=== PATIENT | female | born 1960 | race Two or more races ===

== ENCOUNTER → 2017-10-06 | Emergency (ER) | payer OTHER ==
[~2017-10-06] VITALS: Ht 160 cm; Wt 113.4 kg
[~2017-10-06] MED LIST: BICARSIM FORTE125 MG PO; CATAFLAM50 MG PO; CHEST CONG100 MG/51; CYMBALTA60 MG; DICLOFENAC SODI50 MG PO; GILTUSS LIQUID237 M1 PO; KETO10TA2 PO; ORPH100T PO; PROVENTIL3 ML/2.5 M IH; VALISONE15 GM TP; VENTOLIN HFA18 GM IH; VISTARIL25 MG PO
== END | disposition home or self-care (01) ==
LOC: ER 18:55
DX: R19.7 Diarrhea, unspecified (principal); R10.84 Generalized abdominal pain

== ENCOUNTER → 2018-01-31 | Emergency (ER) | payer OTHER ==
[~2018-01-31] VITALS: Ht 160 cm; Wt 108.0 kg
[~2018-01-31] MED LIST changes: +AMBIEN10 MG PO; +EDLUAR10 MG SL; +GARAMYCIN OPHT3.5 GM OP; +REDNESS RELIEF15 ML OP
== END | disposition home or self-care (01) ==
LOC: ER 04:21
DX: H10.13 Acute atopic conjunctivitis, bilateral (principal)

== ENCOUNTER → 2018-02-03 | Emergency (ER) | payer OTHER ==
[~2018-02-03] VITALS: Ht 160 cm; Wt 106.6 kg
== END | disposition home or self-care (01) ==
LOC: ER 05:08
DX: G47.09 Other insomnia (principal)

== ENCOUNTER 2018-02-10 05:15 | Emergency (ER) | payer OTHER ==
[~2018-02-10] VITALS: Ht 160 cm; Wt 108.0 kg
[2018-02-10] MEDS ORDERED: VISTARIL50 MG PO (07:15)
[2018-02-10] MEDS ORDERED: GENTAK5 ML OPHT ×2 (07:21→07:22)
[2018-02-25] MEDS ORDERED: ZYNCOF 20-400120 ML PO (03:44)
[2018-02-25] MEDS ORDERED: OSEL75CA PO (03:44)
[2018-02-25] MEDS ORDERED: XOPENEX0.63 MG/3 IH (03:44)
== END 2018-02-10 07:27 | disposition home or self-care (01) ==
LOC: ER 05:15
DX: G47.09 Other insomnia (principal); R53.81 Other malaise

== ENCOUNTER → 2018-02-24 | Emergency (ER) | payer OTHER ==
[~2018-02-24] VITALS: Ht 160 cm; Wt 106.6 kg
[~2018-02-24] MED LIST changes: +GENTAK5 ML OPHT; +OSEL75CA PO; +VISTARIL50 MG PO; +XOPENEX0.63 MG/3 IH; +ZYNCOF 20-400120 ML PO
== END | disposition home or self-care (01) ==
LOC: ER 20:59
DX: J11.1 Influenza due to unidentified influenza virus with other respiratory manifestations (principal); B34.9 Viral infection, unspecified

== ENCOUNTER → 2018-03-07 | Emergency (ER) | payer OTHER ==
[~2018-03-07] VITALS: Ht 160 cm; Wt 106.6 kg
== END | disposition left against medical advice (07) ==
LOC: ER 00:08
DX: Z53.20 Procedure and treatment not carried out because of patient's decision for unspecified reasons (principal)

== ENCOUNTER 2018-03-14 20:22 | Emergency (ER) | payer OTHER ==
[~2018-03-14] VITALS: Ht 160 cm; Wt 106.6 kg
[2018-03-14] MEDS ORDERED: CYMBALTA60 MG (20:57)
[2018-03-14] MEDS ORDERED: BACTRIM DS TAB1 EACH PO (23:09)
== END 2018-03-14 23:59 | disposition home or self-care (01) ==
LOC: ER 20:22
DX: B34.9 Viral infection, unspecified (principal); N39.0 Urinary tract infection, site not specified

== ENCOUNTER 2018-04-14 21:01 | Emergency (ER) | payer OTHER ==
[~2018-04-14] VITALS: Ht 160 cm; Wt 106.6 kg
[~2018-04-14 21:01] MED LIST changes: +BACTRIM DS TAB1 EACH PO
== END 2018-04-15 13:18 ==
LOC: ER 21:01
DX: I87.2 Venous insufficiency (chronic) (peripheral) (principal); M62.838 Other muscle spasm; N39.0 Urinary tract infection, site not specified

== ENCOUNTER → 2018-04-30 | Emergency (ER) | payer OTHER ==
[~2018-04-30] VITALS: Ht 160 cm; Wt 109.8 kg
== END | disposition left against medical advice (07) ==
LOC: ER 15:52
DX: Z53.20 Procedure and treatment not carried out because of patient's decision for unspecified reasons (principal)

== ENCOUNTER → 2018-09-30 | Emergency (ER) | payer OTHER ==
[~2018-09-30] VITALS: Ht 160 cm; Wt 108.0 kg
== END | disposition home or self-care (01) ==
LOC: ER 21:36
DX: H57.89 Other specified disorders of eye and adnexa (principal)

== ENCOUNTER 2018-10-01 09:10 | Emergency (ER) | payer OTHER ==
[~2018-10-01] VITALS: Ht 160 cm; Wt 108.0 kg
== END 2018-10-01 13:20 | disposition home or self-care (01) ==
LOC: ER 09:10
DX: E05.80 Other thyrotoxicosis without thyrotoxic crisis or storm (principal)

== ENCOUNTER 2018-10-01 12:31 | Outpatient (CLI) | payer OTHER | END 2018-10-01 12:42 | disposition home or self-care (01) | LOC: LAB 12:31 | DX: E05.90 Thyrotoxicosis, unspecified without thyrotoxic crisis or storm (principal) ==

== ENCOUNTER 2018-10-21 09:26 | Outpatient (CLI) | payer OTHER | END 2018-10-21 13:37 | disposition home or self-care (01) | LOC: NUCLEAR 09:26 | DX: E05.00 Thyrotoxicosis with diffuse goiter without thyrotoxic crisis or storm (principal) | CPT/HCPCS: 78012; A9531 ==

== ENCOUNTER 2018-10-21 10:52 | Outpatient (CLI) | payer OTHER | END 2018-10-21 17:00 | disposition home or self-care (01) | LOC: SONOGRAMA 10:52 → MAMO-SONO 10:52 → SONOGRAMA 17:00 | DX: E03.8 Other specified hypothyroidism (principal); E04.8 Other specified nontoxic goiter ==

== ENCOUNTER 2018-10-22 14:18 | Outpatient (CLI) | payer OTHER | END 2018-10-22 14:50 | disposition home or self-care (01) | LOC: NUCLEAR 14:18 | DX: E05.00 Thyrotoxicosis with diffuse goiter without thyrotoxic crisis or storm (principal) | CPT/HCPCS: 78013; A9512 ==

== ENCOUNTER 2018-11-07 20:46 | Emergency (ER) | payer OTHER ==
[~2018-11-07] VITALS: Ht 157.5 cm; Wt 90.7 kg
== END 2018-11-07 23:38 | disposition home or self-care (01) ==
LOC: ER 20:46
DX: F41.9 Anxiety disorder, unspecified (principal); T38.2X5A Adverse effect of antithyroid drugs, initial encounter; N39.0 Urinary tract infection, site not specified

== ENCOUNTER 2018-12-14 04:58 | Emergency (ER) | payer OTHER ==
[~2018-12-14] VITALS: Ht 157.5 cm; Wt 106.6 kg
== END 2018-12-14 11:01 | disposition home or self-care (01) ==
LOC: ER 04:58
DX: R00.2 Palpitations (principal); E05.90 Thyrotoxicosis, unspecified without thyrotoxic crisis or storm

== ENCOUNTER 2018-12-28 01:45 | Emergency (ER) | payer OTHER ==
[~2018-12-28] VITALS: Ht 160 cm; Wt 108.0 kg
[2018-12-28] MEDS ORDERED: TAPAZOLE5 MG (01:58)
[2018-12-28] MEDS ORDERED: TAPAZOLE5 M1 PO (05:36)
[2018-12-28] MEDS ORDERED: VISTARIL25 MG PO (05:36)
[2018-12-28] MEDS ORDERED: PROPRANOLOL HCL10 MG PO ×2 (05:36→05:37)
== END 2018-12-28 05:43 | disposition home or self-care (01) ==
LOC: ER 01:45
DX: E05.80 Other thyrotoxicosis without thyrotoxic crisis or storm (principal); F06.4 Anxiety disorder due to known physiological condition

== ENCOUNTER 2019-01-09 15:57 | Emergency (ER) | payer OTHER ==
[~2019-01-09] VITALS: Ht 160 cm; Wt 90.7 kg
[~2019-01-09 15:57] MED LIST changes: +PROPRANOLOL HCL10 MG PO; +TAPAZOLE5 M1 PO; +TAPAZOLE5 MG
[2019-01-09] MEDS ORDERED: CYMBALTA20 MG (16:35)
[2019-01-09] MEDS ORDERED: ATIVAN1 MG PO (17:57)
== END 2019-01-09 18:53 | disposition home or self-care (01) ==
LOC: ER 15:57
DX: G47.09 Other insomnia (principal)

== ENCOUNTER → 2019-02-06 | Emergency (ER) | payer OTHER ==
[~2019-02-06] VITALS: Ht 160 cm; Wt 113.4 kg
[~2019-02-06] MED LIST changes: +ATIVAN1 MG PO; +CYMBALTA20 MG; +MOBIC15 MG PO
== END | disposition home or self-care (01) ==
LOC: ER 03:34
DX: M94.0 Chondrocostal junction syndrome [Tietze] (principal)

== ENCOUNTER 2019-02-22 09:43 | Emergency (ER) | payer OTHER ==
[~2019-02-22] VITALS: Ht 160 cm; Wt 112.5 kg
== END 2019-02-22 12:15 | disposition home or self-care (01) ==
LOC: EMR PED 09:43 → ER 09:45
DX: R53.1 Weakness (principal)

== ENCOUNTER 2019-02-26 22:47 | Emergency (ER) | payer OTHER ==
[~2019-02-26] VITALS: Ht 160 cm; Wt 108.0 kg
[2019-02-27] MEDS ORDERED: NORFLEX100MG PO (01:38)
[2019-02-27] MEDS ORDERED: KETO10TA2 PO (01:38)
== END 2019-02-27 01:45 | disposition home or self-care (01) ==
LOC: ER 22:47
DX: S30.0XXA Contusion of lower back and pelvis, initial encounter (principal); W17.89XA Other fall from one level to another, initial encounter; Y93.89 Activity, other specified; Y92.230 Patient room in hospital as the place of occurrence of the external cause; Y99.8 Other external cause status

== ENCOUNTER 2019-03-27 14:08 | Emergency (ER) | payer OTHER ==
[~2019-03-27] VITALS: Ht 160 cm; Wt 108.0 kg
[~2019-03-27 14:08] MED LIST changes: +NORFLEX100MG PO
== END 2019-03-27 16:04 | disposition home or self-care (01) ==
LOC: ER 14:08
DX: M79.18 Myalgia, other site (principal); M19.91 Primary osteoarthritis, unspecified site

== ENCOUNTER 2019-10-21 21:21 | Emergency (ER) | payer OTHER ==
[~2019-10-21] VITALS: Ht 162.6 cm; Wt 97.5 kg
[2019-10-22] MEDS ORDERED: VISTARIL50 MG PO (02:48)
[2019-10-22] MEDS ORDERED: TOBRAMYCIN-DEXAM5 ML OP (02:48)
== END 2019-10-22 04:15 | disposition home or self-care (01) ==
LOC: ER 21:21
DX: H57.89 Other specified disorders of eye and adnexa (principal); G47.09 Other insomnia; F41.8 Other specified anxiety disorders

== ENCOUNTER → 2019-11-04 | Emergency (ER) | payer OTHER ==
[~2019-11-04] VITALS: Ht 160 cm; Wt 106.6 kg
[~2019-11-04] MED LIST changes: +LOTRISONE CREAM45 GM TOP; +TOBRAMYCIN-DEXAM5 ML OP
== END | disposition home or self-care (01) ==
LOC: ER 03:51
DX: R05 Cough (principal)

== ENCOUNTER 2019-11-06 05:07 | Emergency (ER) | payer OTHER ==
[~2019-11-06] VITALS: Ht 160 cm; Wt 103.4 kg
[~2019-11-06 05:07] MED LIST changes: -LOTRISONE CREAM45 GM TOP
[2019-11-06] MEDS ORDERED: CYMBALTA60 MG (05:28)
[2019-11-06] MEDS ORDERED: TAPAZOLE5 M1 PO (06:21)
[2019-11-06] MEDS ORDERED: VISTARIL50 MG PO (06:21)
[2019-11-06] MEDS ORDERED: LOTRISONE CREAM45 GM TOP (06:21)
[2019-11-06] MEDS ORDERED: TOBRAMYCIN-DEXAM5 ML OP (06:21)
== END 2019-11-06 06:39 | disposition home or self-care (01) ==
LOC: ER 05:07
DX: H10.33 Unspecified acute conjunctivitis, bilateral (principal); L30.8 Other specified dermatitis

== ENCOUNTER → 2019-11-23 | Emergency (ER) | payer OTHER ==
[~2019-11-23] VITALS: Ht 160 cm; Wt 106.6 kg
[~2019-11-23] MED LIST changes: +CLARITIN-D 241 EACH PO; +FLONASE16 GM TOP; +LOTRISONE CREAM45 GM TOP; +ZYRTEC10 M3
== END | disposition home or self-care (01) ==
LOC: ER 09:01
DX: H10.89 Other conjunctivitis (principal)

== ENCOUNTER 2019-11-24 17:13 | Emergency (ER) | payer OTHER ==
[~2019-11-24] VITALS: Ht 160 cm; Wt 106.6 kg
[~2019-11-24 17:13] MED LIST changes: -CLARITIN-D 241 EACH PO; -FLONASE16 GM TOP; -ZYRTEC10 M3
[2019-11-24] MEDS ORDERED: ZYRTEC10 M3 (17:44)
[2019-11-24] MEDS ORDERED: CLARITIN-D 241 EACH PO (21:23)
[2019-11-24] MEDS ORDERED: FLONASE16 GM TOP (21:23)
== END 2019-11-24 22:33 | disposition home or self-care (01) ==
LOC: ER 17:13
DX: J32.8 Other chronic sinusitis (principal)

== ENCOUNTER 2019-11-30 07:22 | Emergency (ER) | payer OTHER ==
[~2019-11-30] VITALS: Ht 160 cm; Wt 106.6 kg
[~2019-11-30 07:22] MED LIST changes: +CLARITIN-D 241 EACH PO; +FLONASE16 GM TOP; +ZYRTEC10 M3
[2019-11-30] MEDS ORDERED: VISTARIL50 MG PO (08:43)
== END 2019-11-30 09:19 ==
LOC: ER 07:22
DX: G47.09 Other insomnia (principal)

== ENCOUNTER 2020-09-30 11:58 | Outpatient (CLI) | payer OTHER | END 2020-09-30 12:05 | disposition home or self-care (01) | LOC: MAMO-SONO 11:58 | PROVIDERS: ATTEND Obstetrics & Gynecology | DX: N60.02 Solitary cyst of left breast (principal); Z12.31 Encounter for screening mammogram for malignant neoplasm of breast; N64.4 Mastodynia ==

== ENCOUNTER 2020-10-05 15:09 | Outpatient (CLI) | payer OTHER | END 2020-10-05 15:30 | disposition home or self-care (01) | LOC: RAD 15:09 | PROVIDERS: ATTEND Physical Medicine & Rehabilitation | DX: M25.511 Pain in right shoulder (principal); M54.2 Cervicalgia ==

== ENCOUNTER 2021-04-09 09:35 | Emergency (ER) | payer OTHER ==
[~2021-04-09] VITALS: Ht 162.6 cm; Wt 99.8 kg
== END 2021-04-09 14:29 | disposition home or self-care (01) ==
LOC: ER 09:35
DX: N39.0 Urinary tract infection, site not specified (principal)

== ENCOUNTER → 2021-06-01 08:00 | Outpatient (CLI) | payer OTHER | END | disposition home or self-care (01) | LOC: PPH VACUNA 08:00 | PROVIDERS: ATTEND Emergency Medicine Pediatric Emergency Medicine | DX: Z23 Encounter for immunization (principal) ==

== ENCOUNTER 2021-07-28 07:53 | Emergency (ER) | payer OTHER ==
[~2021-07-28] VITALS: Ht 160 cm; Wt 122.0 kg
[~2021-07-28 07:53] MED LIST changes: -SYNTHROID50 MCG
[2021-07-28] MEDS ORDERED: SYNTHROID50 MCG (08:07)
== END 2021-07-28 14:59 | disposition home or self-care (01) ==
LOC: ER 07:53
DX: F41.9 Anxiety disorder, unspecified (principal)

== ENCOUNTER → 2021-07-28 | Outpatient (CLI) | payer OTHER ==
[~2021-07-28] MED LIST changes: +SYNTHROID50 MCG
== END | disposition home or self-care (01) ==
LOC: SONOGRAMA 13:56
PROVIDERS: ATTEND Emergency Medicine
DX: D34 Benign neoplasm of thyroid gland (principal)

== ENCOUNTER 2022-01-10 16:33 | Outpatient (CLI) | payer OTHER ==
[~2022-01-10 16:33] MED LIST changes: +SYNTHROID50 MCG
== END 2022-01-10 16:48 | disposition home or self-care (01) ==
LOC: RAD 16:33
PROVIDERS: ATTEND General Practice
DX: M79.672 Pain in left foot (principal); M79.601 Pain in right arm

== ENCOUNTER 2022-01-10 17:49 | Emergency (ER) | payer OTHER | END 2022-01-10 19:42 | disposition left against medical advice (07) | LOC: ER 17:49 | DX: Z53.21 Procedure and treatment not carried out due to patient leaving prior to being seen by health care provider (principal) ==

== ENCOUNTER 2022-01-16 08:00 | Outpatient (CLI) | payer OTHER | END 2022-01-16 08:30 | disposition home or self-care (01) | LOC: PPH VACUNA 08:00 | PROVIDERS: ATTEND Emergency Medicine Pediatric Emergency Medicine | DX: Z23 Encounter for immunization (principal) ==

== ENCOUNTER 2022-01-25 06:22 | Outpatient (CLI) | payer OTHER | END 2022-01-25 13:03 | disposition home or self-care (01) | LOC: MRI 06:22 | DX: M79.672 Pain in left foot (principal); M25.111 Fistula, right shoulder; M19.071 Primary osteoarthritis, right ankle and foot | CPT/HCPCS: 73221; 73718 ==

== ENCOUNTER 2022-01-29 08:22 | Emergency (ER) | payer OTHER ==
[~2022-01-29] VITALS: Ht 160 cm; Wt 88.5 kg
[2022-01-29] MEDS ORDERED: ARMOUR THYROID30 M1 PO (08:36)
== END 2022-01-29 13:00 | disposition home or self-care (01) ==
LOC: ER 08:22
DX: M25.572 Pain in left ankle and joints of left foot (principal); Z91.041 Radiographic dye allergy status; Z91.013 Allergy to seafood

== ENCOUNTER 2022-02-08 03:12 | Emergency (ER) | payer OTHER ==
[~2022-02-08] VITALS: Ht 160 cm; Wt 88.5 kg
[~2022-02-08 03:12] MED LIST changes: +ARMOUR THYROID30 M1 PO
[2022-02-08] MEDS ORDERED: ORPHENADRINE C100 MG PO (09:27)
== END 2022-02-08 10:15 | disposition home or self-care (01) ==
LOC: ER 03:12
DX: M54.50 Low back pain, unspecified (principal); S39.92XA Unspecified injury of lower back, initial encounter; Z91.041 Radiographic dye allergy status; Z91.013 Allergy to seafood; E06.9 Thyroiditis, unspecified

== ENCOUNTER 2022-02-28 03:48 | Emergency (ER) | payer OTHER ==
[~2022-02-28] VITALS: Ht 160 cm; Wt 97.5 kg
[~2022-02-28 03:48] MED LIST changes: +ORPHENADRINE C100 MG PO
[2022-02-28] MEDS ORDERED: ARMOUR THYROID30 M1 PO (03:57)
[2022-02-28] MEDS ORDERED: NORFLEX100MG PO (07:20)
[2022-02-28] MEDS ORDERED: KETO10TA2 PO (07:20)
== END 2022-02-28 07:35 | disposition home or self-care (01) ==
LOC: ER 03:48
DX: R51.9 Headache, unspecified (principal); E06.3 Autoimmune thyroiditis; E66.01 Morbid (severe) obesity due to excess calories; Z91.041 Radiographic dye allergy status; Z91.013 Allergy to seafood; M62.830 Muscle spasm of back

== ENCOUNTER 2022-03-14 14:03 | Outpatient (CLI) | payer OTHER | END 2022-03-14 14:43 | disposition home or self-care (01) | LOC: RAD 14:03 | PROVIDERS: ATTEND Orthopaedic Surgery Adult Reconstructive Orthopaedic Surgery | DX: M25.511 Pain in right shoulder (principal); M75.121 Complete rotator cuff tear or rupture of right shoulder, not specified as traumatic; M75.122 Complete rotator cuff tear or rupture of left shoulder, not specified as traumatic ==

== ENCOUNTER 2022-03-17 04:45 | Emergency (ER) | payer OTHER ==
[~2022-03-17] VITALS: Ht 160 cm; Wt 98.9 kg
== END 2022-03-17 15:42 ==
LOC: ER 04:45
DX: B34.9 Viral infection, unspecified (principal); Z88.8 Allergy status to other drugs, medicaments and biological substances; Z91.013 Allergy to seafood; Z20.822 Contact with and (suspected) exposure to COVID-19

== ENCOUNTER → 2022-03-29 | Emergency (ER) | payer OTHER | END | disposition left against medical advice (07) | LOC: ER 14:12 | DX: Z53.21 Procedure and treatment not carried out due to patient leaving prior to being seen by health care provider (principal) ==

== ENCOUNTER → 2022-04-17 | Emergency (ER) | payer OTHER ==
[~2022-04-17] VITALS: Ht 160 cm; Wt 108.0 kg
== END | disposition home or self-care (01) ==
LOC: ER 06:06
DX: M62.830 Muscle spasm of back (principal); R60.0 Localized edema; Z88.8 Allergy status to other drugs, medicaments and biological substances; Z91.013 Allergy to seafood

== ENCOUNTER → 2022-04-19 | Outpatient (CLI) | payer OTHER | END | disposition home or self-care (01) | LOC: MAMO-SONO | PROVIDERS: ATTEND General Practice | DX: Z12.31 Encounter for screening mammogram for malignant neoplasm of breast (principal) ==

== ENCOUNTER 2022-08-27 13:10 | Emergency (ER) | payer OTHER ==
[~2022-08-27] VITALS: Ht 160 cm; Wt 90.7 kg
== END 2022-08-27 18:41 | disposition home or self-care (01) ==
LOC: ER 13:10
DX: M54.50 Low back pain, unspecified (principal); N39.0 Urinary tract infection, site not specified; Z88.8 Allergy status to other drugs, medicaments and biological substances; Z91.013 Allergy to seafood; Z20.822 Contact with and (suspected) exposure to COVID-19; E03.9 Hypothyroidism, unspecified

== ENCOUNTER 2022-09-03 16:41 | Emergency (ER) | payer OTHER ==
[~2022-09-03] VITALS: Ht 160 cm; Wt 108.9 kg
[2022-09-03] MEDS ORDERED: LEVOFLOXACIN750 MG PO (20:39)
== END 2022-09-03 20:57 | disposition home or self-care (01) ==
LOC: ER 16:41
DX: R19.7 Diarrhea, unspecified (principal); J45.909 Unspecified asthma, uncomplicated; E03.9 Hypothyroidism, unspecified; Z88.0 Allergy status to penicillin; Z91.013 Allergy to seafood; Z91.041 Radiographic dye allergy status; A49.3 Mycoplasma infection, unspecified site

== ENCOUNTER 2022-09-08 14:52 | Emergency (ER) | payer OTHER ==
[~2022-09-08] VITALS: Ht 160 cm; Wt 111.1 kg
[~2022-09-08 14:52] MED LIST changes: +LEVOFLOXACIN750 MG PO
[2022-09-08] MEDS ORDERED: ARMOUR THYROID30 M1 (16:02)
== END 2022-09-08 22:35 | disposition home or self-care (01) ==
LOC: ER 14:52
DX: N39.0 Urinary tract infection, site not specified (principal)

== ENCOUNTER 2022-11-05 18:13 | Emergency (ER) | payer OTHER ==
[~2022-11-05] VITALS: Ht 162.6 cm; Wt 111.1 kg
== END 2022-11-05 19:42 | disposition home or self-care (01) ==
LOC: ER 18:13
DX: M54.50 Low back pain, unspecified (principal); R51.9 Headache, unspecified; Z88.0 Allergy status to penicillin; Z91.013 Allergy to seafood; Z91.041 Radiographic dye allergy status

== ENCOUNTER → 2022-11-05 | Emergency (ER) | payer OTHER ==
[~2022-11-05] MED LIST changes: +ARMOUR THYROID30 M1
== END | disposition left against medical advice (07) ==
LOC: ER 16:06
DX: Z53.21 Procedure and treatment not carried out due to patient leaving prior to being seen by health care provider (principal)

== ENCOUNTER 2022-11-15 01:16 | Emergency (ER) | payer OTHER ==
[~2022-11-15] VITALS: Ht 162.6 cm; Wt 110.7 kg
[2022-11-15] MEDS ORDERED: ORPHENADRINE C100 MG PO (05:45)
[2022-11-15] MEDS ORDERED: KETO10TA2 PO (05:45)
== END 2022-11-15 06:13 ==
LOC: ER 01:16
DX: S80.11XA Contusion of right lower leg, initial encounter (principal); S90.32XA Contusion of left foot, initial encounter; S40.011A Contusion of right shoulder, initial encounter; W18.30XA Fall on same level, unspecified, initial encounter; Y93.89 Activity, other specified; Y92.512 Supermarket, store or market as the place of occurrence of the external cause; Y99.9 Unspecified external cause status; Z88.8 Allergy status to other drugs, medicaments and biological substances; Z88.0 Allergy status to penicillin; Z91.013 Allergy to seafood

== ENCOUNTER 2022-11-19 00:36 | Emergency (ER) | payer OTHER ==
[~2022-11-19] VITALS: Ht 160 cm; Wt 111.1 kg
[2022-11-19] MEDS ORDERED: VISTARIL50 MG PO (01:58)
== END 2022-11-19 02:08 | disposition home or self-care (01) ==
LOC: ER 00:36
DX: G47.00 Insomnia, unspecified (principal)

== ENCOUNTER → 2022-12-05 | Emergency (ER) | payer OTHER ==
[~2022-12-05] VITALS: Ht 162.6 cm; Wt 113.4 kg
== END | disposition left against medical advice (07) ==
LOC: ER 22:54
DX: Z53.21 Procedure and treatment not carried out due to patient leaving prior to being seen by health care provider (principal)

== ENCOUNTER 2022-12-24 16:47 | Emergency (ER) | payer OTHER ==
[~2022-12-24] VITALS: Ht 160 cm; Wt 106.6 kg
== END 2022-12-24 21:46 | disposition home or self-care (01) ==
LOC: ER 16:47
DX: J06.9 Acute upper respiratory infection, unspecified (principal); U07.1 COVID-19; R05.8 Other specified cough; Z88.0 Allergy status to penicillin; Z91.013 Allergy to seafood; Z91.041 Radiographic dye allergy status

== ENCOUNTER 2022-12-29 04:10 | Emergency (ER) | payer OTHER ==
[~2022-12-29] VITALS: Ht 167.6 cm; Wt 127.0 kg
[2022-12-29] MEDS ORDERED: KETO10TA2 PO (05:44)
[2022-12-29] MEDS ORDERED: FUSION PLUS CA1 EACH PO (05:44)
== END 2022-12-29 05:50 ==
LOC: ER 04:10
DX: S80.01XA Contusion of right knee, initial encounter (principal); S70.01XA Contusion of right hip, initial encounter; S00.33XA Contusion of nose, initial encounter; W18.30XA Fall on same level, unspecified, initial encounter; Y93.89 Activity, other specified; Y92.018 Other place in single-family (private) house as the place of occurrence of the external cause; Y99.9 Unspecified external cause status; Z88.8 Allergy status to other drugs, medicaments and biological substances; Z88.0 Allergy status to penicillin; Z91.013 Allergy to seafood; E03.9 Hypothyroidism, unspecified

== ENCOUNTER 2023-01-03 00:08 | Emergency (ER) | payer OTHER ==
[~2023-01-03] VITALS: Ht 160 cm; Wt 110.7 kg
[~2023-01-03 00:08] MED LIST changes: +FUSION PLUS CA1 EACH PO
== END 2023-01-03 04:59 ==
LOC: ER 00:08
DX: M54.89 Other dorsalgia (principal); Z88.8 Allergy status to other drugs, medicaments and biological substances; Z88.0 Allergy status to penicillin; Z91.013 Allergy to seafood

== ENCOUNTER 2023-01-06 06:32 | Emergency (ER) | payer OTHER ==
[~2023-01-06] VITALS: Ht 160 cm; Wt 108.0 kg
== END 2023-01-06 09:03 | disposition home or self-care (01) ==
LOC: ER 06:32
DX: M54.59 Other low back pain (principal); Z88.0 Allergy status to penicillin; Z91.041 Radiographic dye allergy status; Z91.013 Allergy to seafood; Z86.39 Personal history of other endocrine, nutritional and metabolic disease

== ENCOUNTER → 2023-01-09 | Outpatient (CLI) | payer OTHER | END | disposition home or self-care (01) | LOC: MRI 07:38 | DX: M54.59 Other low back pain (principal); M51.16 Intervertebral disc disorders with radiculopathy, lumbar region | CPT/HCPCS: 72148 ==

== ENCOUNTER 2023-01-13 23:11 | Emergency (ER) | payer OTHER ==
[~2023-01-13] VITALS: Ht 160 cm; Wt 108.0 kg
[2023-01-15] MEDS ORDERED: KETO10TA2 PO (06:24)
== END 2023-01-13 23:55 | disposition home or self-care (01) ==
LOC: ER 23:11
DX: M62.830 Muscle spasm of back (principal); Z88.8 Allergy status to other drugs, medicaments and biological substances; Z88.0 Allergy status to penicillin; Z91.013 Allergy to seafood

== ENCOUNTER 2023-01-15 04:01 | Emergency (ER) | payer OTHER ==
[~2023-01-15] VITALS: Ht 157.5 cm; Wt 104.3 kg
[2023-01-15] MEDS ORDERED: KETO10TA2 PO ×2 (06:24)
== END 2023-01-15 06:30 ==
LOC: ER 04:01
DX: S89.81XA Other specified injuries of right lower leg, initial encounter (principal); S39.82XA Other specified injuries of lower back, initial encounter; W18.39XA Other fall on same level, initial encounter; Y93.89 Activity, other specified; Y92.524 Gas station as the place of occurrence of the external cause; Y99.8 Other external cause status; Z88.8 Allergy status to other drugs, medicaments and biological substances; Z91.041 Radiographic dye allergy status; Z91.013 Allergy to seafood

== ENCOUNTER 2023-01-18 08:52 | Emergency (ER) | payer OTHER ==
[~2023-01-18] VITALS: Ht 165.1 cm; Wt 113.4 kg
[~2023-01-18 08:52] MED LIST changes: -CYMBALTA60 MG PO
[2023-01-18] MEDS ORDERED: ARMOUR THYROID30 M1 PO (09:00)
[2023-01-18] MEDS ORDERED: CYMBALTA60 MG PO (09:01)
== END 2023-01-18 09:30 | disposition home or self-care (01) ==
LOC: ER 08:52
DX: M25.552 Pain in left hip (principal); Z88.0 Allergy status to penicillin; Z88.2 Allergy status to sulfonamides; Z91.013 Allergy to seafood

== ENCOUNTER → 2023-01-18 | Emergency (ER) | payer OTHER ==
[~2023-01-18] MED LIST changes: +CYMBALTA60 MG PO
== END | disposition home or self-care (01) ==
LOC: ER 05:45
DX: M25.552 Pain in left hip (principal); I10 Essential (primary) hypertension; Z88.0 Allergy status to penicillin; Z91.041 Radiographic dye allergy status; Z91.013 Allergy to seafood

== ENCOUNTER 2023-01-20 03:04 | Emergency (ER) | payer OTHER ==
[~2023-01-20] VITALS: Ht 160 cm; Wt 106.6 kg
[~2023-01-20 03:04] MED LIST changes: +CYMBALTA60 MG PO
== END 2023-01-20 04:12 | disposition home or self-care (01) ==
LOC: ER 03:04
DX: J06.9 Acute upper respiratory infection, unspecified (principal); Z88.8 Allergy status to other drugs, medicaments and biological substances; Z88.0 Allergy status to penicillin; Z91.013 Allergy to seafood

== ENCOUNTER → 2023-01-21 | Emergency (ER) | payer OTHER ==
[~2023-01-21] VITALS: Ht 160 cm; Wt 102.1 kg
== END | disposition left against medical advice (07) ==
LOC: ER 10:01
DX: Z53.21 Procedure and treatment not carried out due to patient leaving prior to being seen by health care provider (principal)

== ENCOUNTER → 2023-01-21 | Emergency (ER) | payer OTHER ==
[~2023-01-21] VITALS: Ht 160 cm; Wt 102.1 kg
== END | disposition left against medical advice (07) ==
LOC: ER 13:44
DX: Z53.21 Procedure and treatment not carried out due to patient leaving prior to being seen by health care provider (principal)

== ENCOUNTER 2023-02-06 04:58 | Emergency (ER) | payer OTHER ==
[~2023-02-06] VITALS: Ht 160 cm; Wt 107.0 kg
== END 2023-02-06 05:43 | disposition home or self-care (01) ==
LOC: ER 04:58
DX: M62.830 Muscle spasm of back (principal); Z88.0 Allergy status to penicillin; Z91.041 Radiographic dye allergy status; Z91.013 Allergy to seafood

== ENCOUNTER → 2023-02-11 | Emergency (ER) | payer OTHER ==
[~2023-02-11] VITALS: Ht 160 cm; Wt 108.0 kg
== END | disposition home or self-care (01) ==
LOC: ER 21:31
DX: M54.32 Sciatica, left side (principal); Z88.8 Allergy status to other drugs, medicaments and biological substances; Z88.0 Allergy status to penicillin; Z91.013 Allergy to seafood

== ENCOUNTER 2023-02-15 03:18 | Emergency (ER) | payer OTHER ==
[~2023-02-15] VITALS: Ht 160 cm; Wt 108.0 kg
[2023-02-15] MEDS ORDERED: DOLOGESIC 500-1 EACH PO (05:15)
== END 2023-02-15 05:29 ==
LOC: ER 03:18
DX: G44.209 Tension-type headache, unspecified, not intractable (principal); E03.9 Hypothyroidism, unspecified; Z88.8 Allergy status to other drugs, medicaments and biological substances; Z88.0 Allergy status to penicillin; Z91.013 Allergy to seafood

== ENCOUNTER 2023-02-17 09:28 | Emergency (ER) | payer OTHER ==
[~2023-02-17] VITALS: Ht 160 cm; Wt 108.0 kg
[~2023-02-17 09:28] MED LIST changes: +DOLOGESIC 500-1 EACH PO
== END 2023-02-17 11:53 | disposition home or self-care (01) ==
LOC: ER 09:28
DX: S40.011A Contusion of right shoulder, initial encounter (principal); S70.11XA Contusion of right thigh, initial encounter; S30.0XXA Contusion of lower back and pelvis, initial encounter; W19.XXXA Unspecified fall, initial encounter; Y93.9 Activity, unspecified; Y92.89 Other specified places as the place of occurrence of the external cause; Y99.9 Unspecified external cause status; Z88.8 Allergy status to other drugs, medicaments and biological substances; Z91.010 Allergy to peanuts; Z91.013 Allergy to seafood

== ENCOUNTER 2023-02-24 21:47 | Emergency (ER) | payer OTHER ==
[~2023-02-24] VITALS: Ht 160 cm; Wt 103.4 kg
== END 2023-02-24 23:22 | disposition home or self-care (01) ==
LOC: ER 21:47
DX: M62.830 Muscle spasm of back (principal)

== ENCOUNTER 2023-02-27 16:45 | Emergency (ER) | payer OTHER ==
[~2023-02-27] VITALS: Ht 160 cm; Wt 106.6 kg
== END 2023-02-27 22:36 | disposition home or self-care (01) ==
LOC: ER 16:45
DX: M54.50 Low back pain, unspecified (principal); M25.552 Pain in left hip; Z88.0 Allergy status to penicillin; Z91.013 Allergy to seafood; Z91.041 Radiographic dye allergy status

== ENCOUNTER 2023-03-03 04:17 | Emergency (ER) | payer OTHER ==
[~2023-03-03] VITALS: Ht 160 cm; Wt 106.6 kg
== END 2023-03-03 12:04 | disposition left against medical advice (07) ==
LOC: ER 04:17
DX: B34.9 Viral infection, unspecified (principal); E03.9 Hypothyroidism, unspecified; Z88.8 Allergy status to other drugs, medicaments and biological substances; Z88.0 Allergy status to penicillin; Z91.013 Allergy to seafood; Z20.822 Contact with and (suspected) exposure to COVID-19

== ENCOUNTER 2023-03-27 03:37 | Emergency (ER) | payer OTHER ==
[~2023-03-27] VITALS: Ht 165.1 cm; Wt 81.6 kg
== END 2023-03-27 09:50 | disposition home or self-care (01) ==
LOC: ER 03:37
DX: J06.9 Acute upper respiratory infection, unspecified (principal); Z20.822 Contact with and (suspected) exposure to COVID-19

== ENCOUNTER 2023-03-30 07:26 | Outpatient (CLI) | payer OTHER | END 2023-03-30 07:34 | disposition home or self-care (01) | LOC: SONOGRAMA 07:26 | DX: R10.13 Epigastric pain (principal) ==

== ENCOUNTER → 2023-04-03 | Emergency (ER) | payer OTHER ==
[~2023-04-03] VITALS: Ht 160 cm; Wt 103.4 kg
== END | disposition left against medical advice (07) ==
LOC: ER 16:38
DX: Z53.21 Procedure and treatment not carried out due to patient leaving prior to being seen by health care provider (principal)

== ENCOUNTER 2023-07-30 14:40 | Emergency (ER) | payer OTHER ==
[~2023-07-30] VITALS: Ht 160 cm; Wt 108.9 kg
[2023-07-30] MEDS ORDERED: ARMOUR THYROID30 M1 (15:30)
[2023-07-30 16:47] LABS: HEMATOCRIT 38.3 % (36.0-45.00); HEMOGLOBIN 12.6 g/dL (12.0-15.00); MEAN CELL VOLUME 85.6 fL (80.00-100.00); MEAN CORPUSCULAR HEMOGLOBIN 28.2 pg (27.00-32.0); PLATELET COUNT 247 K/uL (150-450); RED BLOOD COUNT 4.48 M/uL (4.00-6.00); RED CELL DISTRIBUTION WIDTH 16.2 % (11.5-14.5)
[2023-07-30 17:24] LABS: PH,URINE 5.5 (5.0-8.0); URINE APPEARANCE Turbid; URINE BILIRRUBIN Negative (NEGATIVE); URINE BLOOD Trace; URINE COLOR Yellow; URINE GLUCOSE Negative (NEGATIVE); URINE LEUKOCYTE Large; URINE NITRATE Positive; URINE PROTEIN Negative (NEGATIVE); URINE UROBILINOGEN 0.2 E.U./dl
[2023-07-30 17:28] LABS: URINE RBC 4.8 uL (0.0-20.8); URINE WBC 1180.2 uL (0.0-23.2)
[2023-07-30 17:33] LABS: ALBUMIN 3.3 gm/dL (3.4-5.0); BILIRUBIN TOTAL 0.31 mg/dL (0.3-1.2); CALCIUM 8.9 mg/dL (8.5-10.1); CREATININE SERUM 0.9 mg/dL (0.55-1.02); GFR 63.65; GLOBULINA 3.9 G/DL (2.4-3.5); POTASSIUM 3.75 mEq/L (3.5-5.1); TOTAL PROTEIN 7.2 gm/dL (6.4-8.2); TSH 1.31 uIU/mL (0.358-3.74)
[2023-07-30 17:35] LABS: URINE BACTERIA > 9821.5 uL (0.0-1933); URINE EPITHELIAL CELLS > 201.7 uL (0.0-38.8); URINE SPERM A
== END 2023-07-30 17:59 | disposition home or self-care (01) ==
LOC: ER 14:40
PROVIDERS: General Practice
DX: N39.0 Urinary tract infection, site not specified (principal); G47.00 Insomnia, unspecified; Z88.8 Allergy status to other drugs, medicaments and biological substances; Z88.0 Allergy status to penicillin; Z91.013 Allergy to seafood

== ENCOUNTER → 2024-01-04 | Emergency (ER) | payer OTHER ==
[~2024-01-04] VITALS: Ht 160 cm; Wt 115.7 kg
[~2024-01-04] MED LIST changes: +0.9 % SODIUM CHLORIDE 1,000 ML IV SCH; +FAMOTIDINE/PF 20 MG in 0.9 % SODIUM CHLORIDE 8 ML IV PUSH STA
[2024-01-04 19:20] LABS: HEMATOCRIT 41.5 % (36.0-45.00); HEMOGLOBIN 13.9 g/dL (12.0-15.00); MEAN CELL VOLUME 86.9 fL (80.00-100.00); MEAN CORPUSCULAR HEMOGLOBIN 29.1 pg (27.00-32.0); MEAN CORPUSCULAR HGB CONC 33.5 g/dl (32.0-36.0); PLATELET COUNT 240 K/uL (150-450); RED BLOOD COUNT 4.78 M/uL (4.00-6.00); RED CELL DISTRIBUTION WIDTH 13.9 % (11.5-14.5)
[2024-01-04 19:44] LABS: ALBUMIN 3.6 gm/dL (3.4-5.0); BILIRUBIN TOTAL 0.41 mg/dL (0.3-1.2); CALCIUM 9.3 mg/dL (8.5-10.1); CREATININE SERUM 0.86 mg/dL (0.55-1.02); GFR 67.08; GLOBULINA 4.8 G/DL (2.4-3.5); POTASSIUM 4.27 mEq/L (3.5-5.1); TOTAL PROTEIN 8.4 gm/dL (6.4-8.2)
== END | disposition home or self-care (01) ==
LOC: ER 16:02
PROVIDERS: General Practice
DX: K59.01 Slow transit constipation (principal); R10.9 Unspecified abdominal pain; E03.8 Other specified hypothyroidism; Z88.0 Allergy status to penicillin; Z91.013 Allergy to seafood; Z91.041 Radiographic dye allergy status

== ENCOUNTER 2024-04-10 10:48 | Emergency (ER) | payer OTHER ==
[~2024-04-10] VITALS: Ht 160 cm; Wt 115.7 kg
[~2024-04-10 10:48] MED LIST changes: -0.9 % SODIUM CHLORIDE 1,000 ML IV SCH; -FAMOTIDINE/PF 20 MG in 0.9 % SODIUM CHLORIDE 8 ML IV PUSH STA
[2024-04-10] MEDS ORDERED: ACETAMINOPHEN 500 MG GEL..CAP PO STA (11:29)
[2024-04-10] MEDS ORDERED: KETOROLAC TROMETHAMINE 15 MG VIAL IM STA (11:29)
[2024-04-10] MEDS ORDERED: DIPHENHYDRAMINE HCL 50 MG/ML VIAL 1ML IM STA (11:30)
[2024-04-10] MEDS ORDERED: DIPHENHYDRAMINE HCL 50 MG/ML VIAL 1ML ONE (11:43)
[2024-04-10] MEDS ORDERED: KETOROLAC TROMETHAMINE 30 MG VIAL ONE (11:43)
[2024-04-10] MEDS ORDERED: ACETAMINOPHEN 500 MG GEL..CAP PO ONE (11:44)
[2024-04-10 12:59] LABS: HEMATOCRIT 41.3 % (36.0-45.00); HEMOGLOBIN 13.7 g/dL (12.0-15.00); MEAN CELL VOLUME 87.8 fL (80.00-100.00); MEAN CORPUSCULAR HEMOGLOBIN 29.1 pg (27.00-32.0); MEAN CORPUSCULAR HGB CONC 33.1 g/dl (32.0-36.0); PLATELET COUNT 221 K/uL (150-450); RED CELL DISTRIBUTION WIDTH 13.8 % (11.5-14.5)
[2024-04-10 13:04] LABS: URINE APPEARANCE Clear; URINE BILIRRUBIN Negative (NEGATIVE); URINE BLOOD Negative; URINE COLOR Yellow; URINE GLUCOSE Negative (NEGATIVE); URINE LEUKOCYTE Small; URINE NITRATE Negative; URINE PROTEIN Negative (NEGATIVE); URINE UROBILINOGEN 0.2 E.U./dl
[2024-04-10 13:05] LABS: URINE BACTERIA 936.1 uL (0.0-1933); URINE WBC 81.9 uL (0.0-23.2)
[2024-04-10 13:07] LABS: URINE RBC 1.5 uL (0.0-20.8)
[2024-04-10 13:33] LABS: ALBUMIN 3.7 gm/dL (3.4-5.0); BILIRUBIN TOTAL 0.44 mg/dL (0.3-1.2); CALCIUM 9.1 mg/dL (8.5-10.1); CREATININE SERUM 0.62 mg/dL (0.55-1.02); GFR 97.86; POTASSIUM 4.39 mEq/L (3.5-5.1); TOTAL PROTEIN 7.7 gm/dL (6.4-8.2)
[2024-04-10 13:35] LABS: TSH 1.64 uIU/mL (0.358-3.74)
[2024-04-10] MEDS ORDERED: ACETAMINOPHEN500 M1 PO (14:06)
[2024-04-10] MEDS ORDERED: BACTRIM DS TAB1 EACH PO (14:06)
[2024-04-10] MEDS ORDERED: DICLOFENAC POTA50 MG PO (14:06)
== END 2024-04-10 14:53 | disposition home or self-care (01) ==
LOC: ER 10:48
PROVIDERS: General Practice
DX: N39.0 Urinary tract infection, site not specified (principal); E03.9 Hypothyroidism, unspecified; R42 Dizziness and giddiness; Z88.8 Allergy status to other drugs, medicaments and biological substances; Z88.0 Allergy status to penicillin; Z91.013 Allergy to seafood; Z20.822 Contact with and (suspected) exposure to COVID-19

== ENCOUNTER 2024-05-01 04:45 | Emergency (ER) | payer OTHER ==
[~2024-05-01] VITALS: Ht 160 cm; Wt 111.1 kg
[~2024-05-01 04:45] MED LIST changes: +ACETAMINOPHEN500 M1 PO; +DICLOFENAC POTA50 MG PO
[2024-05-01 06:57] LABS: HEMOGLOBIN 13.1 g/dL (12.0-15.00); MEAN CORPUSCULAR HEMOGLOBIN 29.6 pg (27.00-32.0); MEAN CORPUSCULAR HGB CONC 33.6 g/dl (32.0-36.0); PLATELET COUNT 236 K/uL (150-450); RED BLOOD COUNT 4.43 M/uL (4.00-6.00); RED CELL DISTRIBUTION WIDTH 14.1 % (11.5-14.5)
[2024-05-01 07:26] LABS: ALBUMIN 3.6 gm/dL (3.4-5.0); BILIRUBIN TOTAL 0.55 mg/dL (0.3-1.2); CALCIUM 8.7 mg/dL (8.5-10.1); CREATININE SERUM 0.85 mg/dL (0.55-1.02); GFR 67.77; GLOBULINA 3.8 G/DL (2.4-3.5); POTASSIUM 4.15 mEq/L (3.5-5.1); TOTAL PROTEIN 7.4 gm/dL (6.4-8.2); TSH 1.32 uIU/mL (0.358-3.74)
== END 2024-05-01 09:01 | disposition home or self-care (01) ==
LOC: ER 04:45
PROVIDERS: General Practice
DX: R42 Dizziness and giddiness (principal); R53.81 Other malaise; Z88.8 Allergy status to other drugs, medicaments and biological substances; Z88.0 Allergy status to penicillin; Z91.013 Allergy to seafood; E03.9 Hypothyroidism, unspecified

== ENCOUNTER 2024-05-01 22:52 | Emergency (ER) | payer OTHER ==
[~2024-05-01] VITALS: Ht 160 cm; Wt 111.1 kg
== END 2024-05-02 01:03 | disposition home or self-care (01) ==
LOC: ER 22:52
DX: R42 Dizziness and giddiness (principal); Z88.8 Allergy status to other drugs, medicaments and biological substances; Z88.0 Allergy status to penicillin; Z91.013 Allergy to seafood

== ENCOUNTER 2024-05-22 14:23 | Outpatient (CLI) | payer OTHER | END 2024-05-22 14:24 | disposition home or self-care (01) | LOC: NUCLEAR 14:23 | DX: M81.0 Age-related osteoporosis without current pathological fracture (principal) ==

== ENCOUNTER 2024-06-10 03:23 | Emergency (ER) | payer OTHER ==
[~2024-06-10] VITALS: Ht 165.1 cm; Wt 108.0 kg
[2024-06-10] MEDS ORDERED: KETOROLAC TROMETHAMINE 60 MG VIAL IM STA (04:27)
[2024-06-10] MEDS ORDERED: ACETAMINOPHEN WITH CODEINE 1 UDTAB TABLET PO STA (04:27)
[2024-06-10] MEDS ORDERED: DEXAMETHASONE SODIUM PHOSPHATE 4 MG/ML VIAL IM STA (04:27)
[2024-06-10] MEDS ORDERED: KETOROLAC TROMETHAMINE 60 MG VIAL IM ONE (04:33)
[2024-06-10] MEDS ORDERED: DEXAMETHASONE SODIUM PHOSPHATE 4 MG/ML VIAL ONE (04:33)
== END 2024-06-10 05:01 | disposition home or self-care (01) ==
LOC: ER 03:23
DX: M54.50 Low back pain, unspecified (principal); Z88.8 Allergy status to other drugs, medicaments and biological substances; Z88.0 Allergy status to penicillin; Z91.013 Allergy to seafood

== ENCOUNTER 2024-06-18 13:02 | Emergency (ER) | payer OTHER ==
[~2024-06-18] VITALS: Ht 160 cm; Wt 115.2 kg
[2024-06-18 13:43] VITALS: BP 140/80; O2SAT 99
[2024-06-18 16:14] LABS: CALCIUM 8.9 mg/dL (8.5-10.1); CREATININE SERUM 0.73 mg/dL (0.55-1.02); GFR 80.78; POTASSIUM 3.62 mEq/L (3.5-5.1)
[2024-06-18 16:22] LABS: PH,URINE 5.5 (5.0-8.0); URINE APPEARANCE Cloudy; URINE BILIRRUBIN Negative (NEGATIVE); URINE BLOOD Negative; URINE COLOR Yellow; URINE GLUCOSE Negative (NEGATIVE); URINE KETONE Negative (NEGATIVE); URINE LEUKOCYTE Small; URINE NITRATE Positive; URINE PROTEIN Negative (NEGATIVE); URINE UROBILINOGEN 0.2 E.U./dl
[2024-06-18 16:29] LABS: URINE BACTERIA 3432.2 uL (0.0-1933); URINE EPITHELIAL CELLS 63.8 uL (0.0-38.8); URINE RBC 3.2 uL (0.0-20.8); URINE WBC 96.6 uL (0.0-23.2)
[2024-06-18 16:53] LABS: URINE CAST 1.06 uL (0.0-1.40)
== END 2024-06-18 18:55 | disposition left against medical advice (07) ==
LOC: ER 13:04
PROVIDERS: General Practice
DX: F41.9 Anxiety disorder, unspecified (principal); Z88.8 Allergy status to other drugs, medicaments and biological substances; Z88.0 Allergy status to penicillin; Z91.013 Allergy to seafood

== ENCOUNTER 2024-06-22 04:44 | Emergency (ER) | payer OTHER ==
[~2024-06-22] VITALS: Ht 160 cm; Wt 112.9 kg
[2024-06-22] MEDS ORDERED: TRAMADOL HCL 50 MG TABLET PO ONE (09:00)
[2024-06-22] MEDS ORDERED: KETOROLAC TROMETHAMINE 30 MG VIAL IM ONE (09:00)
[2024-06-22] MEDS ORDERED: ORPHENADRINE CITRATE 30 MG/ML AMPUL IM ONE (09:00)
== END 2024-06-22 10:39 | disposition home or self-care (01) ==
LOC: ER 04:44
DX: M62.830 Muscle spasm of back (principal); Z88.0 Allergy status to penicillin; Z91.013 Allergy to seafood; Z91.041 Radiographic dye allergy status

== ENCOUNTER 2024-06-25 15:41 | Outpatient (CLI) | payer OTHER | END 2024-06-25 16:01 | disposition home or self-care (01) | LOC: RAD 15:41 | PROVIDERS: ATTEND Physical Medicine & Rehabilitation | DX: M16.11 Unilateral primary osteoarthritis, right hip (principal); M16.12 Unilateral primary osteoarthritis, left hip ==

== ENCOUNTER 2024-08-01 20:33 | Emergency (ER) | payer OTHER ==
[~2024-08-01] VITALS: Ht 160 cm; Wt 108.9 kg
[2024-08-02] MEDS ORDERED: ORPHENADRINE CITRATE 30 MG/ML AMPUL IM STA (02:08)
[2024-08-02] MEDS ORDERED: KETOROLAC TROMETHAMINE 60 MG VIAL IM STA (02:08)
[2024-08-02] MEDS ORDERED: DICLOFENAC POTA50 MG PO (02:11)
== END 2024-08-02 03:01 ==
LOC: ER 20:35
DX: M25.552 Pain in left hip (principal); E03.9 Hypothyroidism, unspecified; Z88.8 Allergy status to other drugs, medicaments and biological substances; Z88.0 Allergy status to penicillin; Z91.013 Allergy to seafood

== ENCOUNTER 2024-08-09 04:28 | Emergency (ER) | payer OTHER ==
[~2024-08-09] VITALS: Ht 160 cm; Wt 111.1 kg
[2024-08-09] MEDS ORDERED: ORPHENADRINE CITRATE 30 MG/ML AMPUL IM STA (06:12)
[2024-08-09] MEDS ORDERED: KETOROLAC TROMETHAMINE 60 MG VIAL IM STA (06:12)
[2024-08-09] MEDS ORDERED: DEXAMETHASONE SODIUM PHOSPHATE 4 MG/ML VIAL IM STA (06:12)
== END 2024-08-09 06:22 | disposition home or self-care (01) ==
LOC: ER 04:30
DX: M62.830 Muscle spasm of back (principal); Z91.040 Latex allergy status; Z91.013 Allergy to seafood; Z88.0 Allergy status to penicillin

== ENCOUNTER 2024-08-15 10:09 | Emergency (ER) | payer OTHER ==
[~2024-08-15] VITALS: Ht 160 cm; Wt 108.0 kg
[2024-08-15] MEDS ORDERED: KETOROLAC TROMETHAMINE 60 MG VIAL IM STA (11:16)
== END 2024-08-15 12:54 | disposition home or self-care (01) ==
LOC: ER 10:11
DX: M25.551 Pain in right hip (principal); Z88.8 Allergy status to other drugs, medicaments and biological substances; Z88.0 Allergy status to penicillin; Z91.013 Allergy to seafood

== ENCOUNTER 2024-09-02 03:32 | Emergency (ER) | payer OTHER ==
[~2024-09-02] VITALS: Ht 160 cm; Wt 108.0 kg
[2024-09-02] MEDS ORDERED: ACETAMINOPHEN WITH CODEINE 1 UDTAB TABLET PO STA (07:44)
[2024-09-02] MEDS ORDERED: KETOROLAC TROMETHAMINE 60 MG VIAL IM STA (07:44)
== END 2024-09-02 08:27 | disposition left against medical advice (07) ==
LOC: ER 03:34
DX: R53.81 Other malaise (principal); I10 Essential (primary) hypertension; Z88.0 Allergy status to penicillin; Z91.013 Allergy to seafood; Z91.041 Radiographic dye allergy status

== ENCOUNTER 2024-09-05 08:12 | Emergency (ER) | payer OTHER ==
[~2024-09-05] VITALS: Ht 160 cm; Wt 106.6 kg
[2024-09-05] MEDS ORDERED: KETOROLAC TROMETHAMINE 15 MG VIAL IM STA (09:18)
== END 2024-09-05 10:08 | disposition home or self-care (01) ==
LOC: ER 08:12
DX: M25.571 Pain in right ankle and joints of right foot (principal); M25.572 Pain in left ankle and joints of left foot; R51.9 Headache, unspecified; Z88.8 Allergy status to other drugs, medicaments and biological substances; Z88.0 Allergy status to penicillin; Z91.013 Allergy to seafood

== ENCOUNTER 2024-09-09 08:16 | Outpatient (CLI) | payer OTHER | END 2024-09-09 08:22 | disposition home or self-care (01) | LOC: SONOGRAMA 08:16 | DX: E03.9 Hypothyroidism, unspecified (principal) ==

== ENCOUNTER 2024-09-13 01:20 | Emergency (ER) | payer OTHER ==
[~2024-09-13] VITALS: Ht 160 cm; Wt 102.1 kg
[2024-09-13] MEDS ORDERED: ORPHENADRINE CITRATE 30 MG/ML AMPUL IM STA (04:13)
[2024-09-13] MEDS ORDERED: KETOROLAC TROMETHAMINE 60 MG VIAL IM STA (04:13)
== END 2024-09-13 07:27 | disposition home or self-care (01) ==
LOC: ER 01:22
DX: M54.50 Low back pain, unspecified (principal); Z88.8 Allergy status to other drugs, medicaments and biological substances; Z88.0 Allergy status to penicillin; Z91.013 Allergy to seafood

== ENCOUNTER 2024-09-21 09:22 | Emergency (ER) | payer OTHER ==
[~2024-09-21] VITALS: Ht 157.5 cm; Wt 102.1 kg
[2024-09-21 10:42] LABS: HEMATOCRIT 36.8 % (36.0-45.00); MEAN CORPUSCULAR HEMOGLOBIN 28.4 pg (27.00-32.0); MEAN CORPUSCULAR HGB CONC 32.7 g/dl (32.0-36.0); PLATELET COUNT 205 K/uL (150-450); RED BLOOD COUNT 4.23 M/uL (4.00-6.00); RED CELL DISTRIBUTION WIDTH 14.6 % (11.5-14.5)
[2024-09-21] MEDS ORDERED: KETOROLAC TROMETHAMINE 30 MG VIAL IM STA (11:03)
== END 2024-09-21 11:10 | disposition home or self-care (01) ==
LOC: ER 09:24
PROVIDERS: General Practice
DX: R05.9 Cough, unspecified (principal); Z20.822 Contact with and (suspected) exposure to COVID-19; Z88.8 Allergy status to other drugs, medicaments and biological substances; Z88.0 Allergy status to penicillin; Z91.013 Allergy to seafood

== ENCOUNTER → 2024-09-22 | Emergency (ER) | payer OTHER ==
[~2024-09-22] VITALS: Ht 165.1 cm; Wt 113.4 kg
[~2024-09-22] MED LIST changes: +LEVALBUTEROL HCL 0.63 MG/3 ML SOLUTION IH ONE; +METHYLPREDNISOLONE SOD SUCC 125 MG VIAL ONE
[2024-09-22 22:30] VITALS: BP 116/57; O2SAT 96
== END | disposition left against medical advice (07) ==
LOC: ER 22:07
DX: Z53.21 Procedure and treatment not carried out due to patient leaving prior to being seen by health care provider (principal)

== ENCOUNTER 2024-09-25 10:23 | Emergency (ER) | payer OTHER ==
[~2024-09-25] VITALS: Ht 160 cm; Wt 104.3 kg
[~2024-09-25 10:23] MED LIST changes: -LEVALBUTEROL HCL 0.63 MG/3 ML SOLUTION IH ONE; -METHYLPREDNISOLONE SOD SUCC 125 MG VIAL ONE
[2024-09-25] MEDS ORDERED: LEVALBUTEROL HCL 0.63 MG/3 ML SOLUTION IH SCH (11:15)
[2024-09-25] MEDS ORDERED: METHYLPREDNISOLONE SOD SUCC 125 MG VIAL IV ONE (11:15)
== END 2024-09-25 16:10 | disposition home or self-care (01) ==
LOC: ER 10:25
DX: J22 Unspecified acute lower respiratory infection (principal); Z88.0 Allergy status to penicillin; Z91.041 Radiographic dye allergy status; Z91.013 Allergy to seafood

== ENCOUNTER → 2024-09-27 | Emergency (ER) | payer OTHER ==
[~2024-09-27] VITALS: Ht 160 cm; Wt 106.6 kg
[~2024-09-27] MED LIST changes: +IPRATROPIUM BROMIDE 0.5 MG/2.5 ML AMPUL.NEB IH ONE; +LEVALBUTEROL HCL 1.25 MG/3 ML SOLUTION IH ONE; +METHYLPREDNISOLONE SOD SUCC 125 MG VIAL ONE; +WATER FOR INJ.,BACTERIOSTATIC 30 ML VIAL IJ ONE
== END | disposition left against medical advice (07) ==
LOC: ER 17:45
DX: Z53.21 Procedure and treatment not carried out due to patient leaving prior to being seen by health care provider (principal)

== ENCOUNTER → 2024-09-27 | Emergency (ER) | payer OTHER ==
[~2024-09-27] MED LIST changes: -IPRATROPIUM BROMIDE 0.5 MG/2.5 ML AMPUL.NEB IH ONE; -LEVALBUTEROL HCL 1.25 MG/3 ML SOLUTION IH ONE; -METHYLPREDNISOLONE SOD SUCC 125 MG VIAL ONE; -WATER FOR INJ.,BACTERIOSTATIC 30 ML VIAL IJ ONE
== END | disposition left against medical advice (07) ==
LOC: ER 22:37
DX: Z53.21 Procedure and treatment not carried out due to patient leaving prior to being seen by health care provider (principal)

== ENCOUNTER → 2024-09-28 | Emergency (ER) | payer OTHER ==
[~2024-09-28] VITALS: Ht 160 cm; Wt 106.6 kg
[~2024-09-28] MED LIST changes: +IPRATROPIUM BROMIDE 0.5 MG/2.5 ML AMPUL.NEB IH SCH; +LEVALBUTEROL HCL 1.25 MG/3 ML SOLUTION IH SCH; +METHYLPREDNISOLONE SOD SUCC 125 MG VIAL IV ONE
[2024-09-28 11:18] LABS: URINE BILIRRUBIN NEGATIVE (NEGATIVE); URINE BLOOD NEGATIVE; URINE GLUCOSE NEGATIVE (NEGATIVE); URINE KETONE NEGATIVE (NEGATIVE); URINE LEUKOCYTE NEGATIVE; URINE NITRATE NEGATIVE; URINE PROTEIN NEGATIVE (NEGATIVE); URINE UROBILINOGEN 0.2 E.U./dl
[2024-09-28 11:32] LABS: URINE APPEARANCE CLEAR; URINE COLOR YELLOW
[2024-09-28 11:33] LABS: URINE BACTERIA FEW; URINE CRYSTALS NEGATIVE /HPF; URINE EPITHELIAL CELLS 0-4 /HPF; URINE MUCUS NEGATIVE; URINE RBC 0-3 /HPF; URINE WBC 0-2 /hpf
== END | disposition home or self-care (01) ==
LOC: ER 06:14
PROVIDERS: General Practice
DX: J45.901 Unspecified asthma with (acute) exacerbation (principal); Z91.013 Allergy to seafood; Z91.041 Radiographic dye allergy status; Z88.0 Allergy status to penicillin; I10 Essential (primary) hypertension; Z20.822 Contact with and (suspected) exposure to COVID-19
CPT/HCPCS: 36415; 94640; 96365; 99284; J3490

== ENCOUNTER 2024-09-29 11:08 | Emergency (ER) | payer OTHER ==
[~2024-09-29] VITALS: Ht 157.5 cm; Wt 106.6 kg
[~2024-09-29 11:08] MED LIST changes: -IPRATROPIUM BROMIDE 0.5 MG/2.5 ML AMPUL.NEB IH SCH; -LEVALBUTEROL HCL 1.25 MG/3 ML SOLUTION IH SCH; -METHYLPREDNISOLONE SOD SUCC 125 MG VIAL IV ONE
[2024-09-29 12:09] VITALS: BP 171/83; O2SAT 100
[2024-09-29] MEDS ORDERED: LEVALBUTEROL HCL 1.25 MG/3 ML SOLUTION IH STA (13:23)
[2024-09-29] MEDS ORDERED: LEVALBUTEROL HCL 1.25 MG/3 ML SOLUTION IH SCH (15:00)
[2024-09-29] MEDS ORDERED: IPRATROPIUM BROMIDE 0.5 MG/2.5 ML AMPUL.NEB IH SCH (15:00)
== END 2024-09-29 17:40 | disposition home or self-care (01) ==
LOC: ER 11:11
DX: R53.81 Other malaise (principal); R05.9 Cough, unspecified; Z88.0 Allergy status to penicillin; Z91.013 Allergy to seafood; Z91.041 Radiographic dye allergy status

== ENCOUNTER → 2024-10-01 | Emergency (ER) | payer OTHER ==
[~2024-10-01] VITALS: Ht 160 cm; Wt 102.1 kg
== END | disposition left against medical advice (07) ==
LOC: ER 06:13
DX: Z53.21 Procedure and treatment not carried out due to patient leaving prior to being seen by health care provider (principal)

== ENCOUNTER 2024-10-17 05:41 | Emergency (ER) | payer OTHER ==
[~2024-10-17] VITALS: Ht 160 cm; Wt 103.4 kg
[2024-10-17] MEDS ORDERED: HYDROCODONE/CHLORPHEN P-STIREX 5 ML ML PO STA (06:20)
[2024-10-17] MEDS ORDERED: CODEINE PHOSPHATE/GUAIFENESIN 5 ML ML PO STA (06:26)
[2024-10-17 06:54] LABS: HEMOGLOBIN 12.4 g/dL (12.0-15.00); MEAN CELL VOLUME 87.2 fL (80.00-100.00); MEAN CORPUSCULAR HEMOGLOBIN 28.4 pg (27.00-32.0); MEAN CORPUSCULAR HGB CONC 32.6 g/dl (32.0-36.0); PLATELET COUNT 221 K/uL (150-450); RED BLOOD COUNT 4.36 M/uL (4.00-6.00); RED CELL DISTRIBUTION WIDTH 14.8 % (11.5-14.5)
== END 2024-10-17 07:51 | disposition home or self-care (01) ==
LOC: ER 05:43
DX: J06.9 Acute upper respiratory infection, unspecified (principal); R05.9 Cough, unspecified; Z20.822 Contact with and (suspected) exposure to COVID-19; Z88.0 Allergy status to penicillin; Z91.013 Allergy to seafood; Z91.041 Radiographic dye allergy status

== ENCOUNTER 2024-10-17 22:08 | Emergency (ER) | payer OTHER ==
[~2024-10-17] VITALS: Ht 160 cm; Wt 108.0 kg
[2024-10-18] MEDS ORDERED: OxyCODONE HCL/APAP UD (PERCOCET) PO STA (01:06)
[2024-10-18] MEDS ORDERED: KETOROLAC TROMETHAMINE 60 MG VIAL IM STA (01:06)
[2024-10-18] MEDS ORDERED: KETOROLAC TROMETHAMINE 60 MG VIAL IM ONE (01:23)
== END 2024-10-18 03:01 | disposition home or self-care (01) ==
LOC: ER 22:11
DX: S80.02XA Contusion of left knee, initial encounter (principal); W18.39XA Other fall on same level, initial encounter; Y93.89 Activity, other specified; Y92.89 Other specified places as the place of occurrence of the external cause; Z88.0 Allergy status to penicillin; Z91.041 Radiographic dye allergy status; Z91.013 Allergy to seafood
CPT/HCPCS: 73560; 96372; 99283; J1885

== ENCOUNTER 2024-10-23 07:47 | Outpatient (CLI) | payer OTHER | END 2024-10-23 07:54 | disposition home or self-care (01) | LOC: RAD 07:47 | PROVIDERS: ATTEND Physical Medicine & Rehabilitation | DX: S96.912A Strain of unspecified muscle and tendon at ankle and foot level, left foot, initial encounter (principal); X58.XXXA Exposure to other specified factors, initial encounter; Y93.9 Activity, unspecified; Y92.9 Unspecified place or not applicable; Y99.9 Unspecified external cause status ==

== ENCOUNTER → 2024-10-23 | Emergency (ER) | payer OTHER | END | disposition left against medical advice (07) | LOC: ER 07:28 | DX: Z53.21 Procedure and treatment not carried out due to patient leaving prior to being seen by health care provider (principal) ==

== ENCOUNTER 2024-10-24 15:31 | Outpatient (CLI) | payer OTHER | END 2024-10-24 15:40 | disposition home or self-care (01) | LOC: MRI 15:31 | PROVIDERS: ATTEND Orthopaedic Surgery | DX: M25.462 Effusion, left knee (principal) | CPT/HCPCS: 73718 ==

== ENCOUNTER → 2024-11-04 | Emergency (ER) | payer OTHER ==
[~2024-11-04] VITALS: Ht 162.6 cm; Wt 72.6 kg
== END | disposition left against medical advice (07) ==
LOC: ER 03:32
DX: Z53.21 Procedure and treatment not carried out due to patient leaving prior to being seen by health care provider (principal)

== ENCOUNTER 2025-02-13 14:29 | Emergency (ER) | payer OTHER ==
[~2025-02-13] VITALS: Ht 160 cm; Wt 108.9 kg
[2025-02-13 14:43] VITALS: BP 105/64; O2SAT 98
[2025-02-13 17:15] LABS: BASO % 0.8 % (0.1-1.2); EOS # 0.13 (0.04-0.54); EOS % 2.2 % (0.7-7.0); HEMATOCRIT 37.6 % (34.1-44.9); HEMOGLOBIN 12.3 g/dL (11.2-15.7); LYMPH # 1.88 (1.18-3.74); LYMPH % 31.2 % (19.3-53.1); MONO # 0.36 (0.24-0.82); NEUT # 3.59 (1.56-6.13); NEUT % 59.5 % (34.0-71.1); PLATELET COUNT 222 K/uL (163-369); RED BLOOD COUNT 4.24 M/uL (3.93-5.22); RED CELL DISTRIBUTION WIDTH 13.8 % (11.6-14.4)
[2025-02-13 17:44] LABS: URINE APPEARANCE Cloudy; URINE BILIRRUBIN Negative (NEGATIVE); URINE BLOOD Negative; URINE COLOR Yellow; URINE GLUCOSE Negative (NEGATIVE); URINE KETONE Negative (NEGATIVE); URINE LEUKOCYTE Moderate; URINE NITRATE Positive; URINE PROTEIN Negative (NEGATIVE); URINE UROBILINOGEN 0.2 E.U./dl
[2025-02-13 17:48] LABS: URINE EPITHELIAL CELLS 174.4 uL (0.0-38.8); URINE RBC 6.4 uL (0.0-20.8); URINE WBC 146.4 uL (0.0-23.2)
[2025-02-13 18:00] LABS: URINE BACTERIA > 9821.5 uL (0.0-1933); URINE CAST 1.17 uL (0.0-1.40)
[2025-02-13 18:11] LABS: CALCIUM 8.3 mg/dL (8.5-10.1); CREATININE SERUM 0.56 mg/dL (0.55-1.02); GFR 109.69; POTASSIUM 4.07 mEq/L (3.5-5.1); TSH 1.71 uIU/mL (0.358-3.74)
[2025-02-13] MEDS ORDERED: CEFTRIAXONE SODIUM 1,000 MG VIAL IM STA (18:50)
[2025-02-13] MEDS ORDERED: LIDOCAINE HCL 1% 10ML VIAL ONE (19:08)
[2025-02-13] MEDS ORDERED: CEFTRIAXONE SODIUM 1,000 MG VIAL ONE (19:08)
== END 2025-02-13 19:24 | disposition home or self-care (01) ==
LOC: ER 14:29
PROVIDERS: General Practice
DX: R61 Generalized hyperhidrosis (principal); Z88.8 Allergy status to other drugs, medicaments and biological substances; Z88.0 Allergy status to penicillin; Z91.013 Allergy to seafood

== ENCOUNTER → 2025-02-26 | Emergency (ER) | payer OTHER ==
[~2025-02-26] VITALS: Ht 165.1 cm; Wt 122.5 kg
[~2025-02-26] MED LIST changes: +PROGESTERONE100 M1 PO
[2025-02-26 16:44] VITALS: BP 140/85; O2SAT 98
== END | disposition left against medical advice (07) ==
LOC: ER 16:19
DX: Z53.21 Procedure and treatment not carried out due to patient leaving prior to being seen by health care provider (principal)

== ENCOUNTER 2025-03-01 23:11 | Emergency (ER) | payer OTHER ==
[~2025-03-01] VITALS: Ht 157.5 cm; Wt 108.0 kg
[2025-03-02] MEDS ORDERED: LORazepam 2 MG/ML VIAL IM STA (01:06)
[2025-03-02] MEDS ORDERED: LORazepam 2 MG/ML VIAL ONE (01:20)
[2025-03-02] MEDS ORDERED: ATIVAN1 M1 PO (06:35)
== END 2025-03-02 07:19 | disposition home or self-care (01) ==
LOC: ER 23:32
DX: F41.8 Other specified anxiety disorders (principal); G47.09 Other insomnia; Z88.0 Allergy status to penicillin; Z91.041 Radiographic dye allergy status; Z91.013 Allergy to seafood

== ENCOUNTER 2025-05-17 19:29 | Emergency (ER) | payer OTHER ==
[~2025-05-17] VITALS: Ht 160 cm; Wt 108.9 kg
[~2025-05-17 19:29] MED LIST changes: +ATIVAN1 M1 PO
[2025-05-18 00:20] LABS: BASO % 0.6 % (0.1-1.2); EOS # 0.11 (0.04-0.54); EOS % 1.6 % (0.7-7.0); LYMPH # 2.40 (1.18-3.74); LYMPH % 34.4 % (19.3-53.1); MEAN PLATELET VOLUME 11.10 fl (9.4-12.4); MONO # 0.32 (0.24-0.82); MONO % 4.6 % (4.7-12.5); NEUT # 4.09 (1.56-6.13); NEUT % 58.5 % (34.0-71.1); RED CELL DISTRIBUTION WIDTH 12.4 % (11.6-14.4)
[2025-05-18 00:30] LABS: URINE APPEARANCE Clear; URINE BILIRRUBIN Negative (NEGATIVE); URINE BLOOD Negative; URINE COLOR Yellow; URINE GLUCOSE Negative (NEGATIVE); URINE KETONE Negative (NEGATIVE); URINE LEUKOCYTE Small; URINE NITRATE Negative; URINE PROTEIN Negative (NEGATIVE); URINE UROBILINOGEN 0.2 E.U./dl
[2025-05-18 00:33] LABS: URINE BACTERIA 382.8 uL (0.0-1933); URINE EPITHELIAL CELLS 22.2 uL (0.0-38.8); URINE RBC 2.3 uL (0.0-20.8); URINE WBC 22.1 uL (0.0-23.2)
[2025-05-18 00:35] LABS: URINE CAST 0.14 uL (0.0-1.40)
[2025-05-18 00:40] LABS: ALT/SGPT 22.0 U/L (12-78); AST/SGOT 16.0 U/L (15-37); BILIRUBIN TOTAL 0.28 mg/dL (0.3-1.2); BUN CREA RATIO 23.0 (7.0-25.0); CREATININE SERUM 0.7 mg/dL (0.55-1.02); GFR 84.51; GLOBULINA 3.7 G/DL (2.4-3.5); GLUCOSE FASTING 131.0 mg/dL (65-100); OSMOLALITY SERUM 288.0 MOSM/KG (275-295)
[2025-05-18] MEDS ORDERED: CIPRO500 MG PO (02:36)
[2025-05-18] MEDS ORDERED: PYRIDIUM DS200 MG PO (02:36)
== END 2025-05-18 03:15 ==
LOC: ER 19:56
PROVIDERS: Preventive Medicine Public Health & General Preventive Medicine
DX: N39.0 Urinary tract infection, site not specified (principal); E03.8 Other specified hypothyroidism; Z88.0 Allergy status to penicillin; Z91.013 Allergy to seafood; Z91.041 Radiographic dye allergy status; R30.0 Dysuria

== ENCOUNTER 2025-05-26 16:26 | Emergency (ER) | payer OTHER ==
[~2025-05-26] VITALS: Ht 160 cm; Wt 111.1 kg
[~2025-05-26 16:26] MED LIST changes: +CIPRO500 MG PO; +PYRIDIUM DS200 MG PO
[2025-05-26 17:28] VITALS: BP 145/77; O2SAT 97
[2025-05-26] MEDS ORDERED: FAMOtidine 10 MG/ML (4ML VIAL) IV PUSH STA (20:35)
[2025-05-26] MEDS ORDERED: ONDANSETRON HCL 2 MG/ML VIAL IV STA (20:36)
[2025-05-26] MEDS ORDERED: FAMOTIDINE/PF 20 MG/2 ML VIAL ONE (20:41)
[2025-05-26] MEDS ORDERED: ONDANSETRON HCL 2 MG/ML VIAL ONE (20:41)
[2025-05-26 21:15] LABS: BASO % 0.7 % (0.1-1.2); EOS # 0.10 (0.04-0.54); EOS % 1.6 % (0.7-7.0); LYMPH # 2.21 (1.18-3.74); LYMPH % 36.2 % (19.3-53.1); MEAN PLATELET VOLUME 11.60 fl (9.4-12.4); MONO # 0.45 (0.24-0.82); MONO % 7.4 % (4.7-12.5); NEUT # 3.28 (1.56-6.13); NEUT % 53.8 % (34.0-71.1); RED CELL DISTRIBUTION WIDTH 12.4 % (11.6-14.4)
[2025-05-26 21:39] LABS: BUN CREA RATIO 19.0 (7.0-25.0); CREATININE SERUM 0.64 mg/dL (0.55-1.02); GFR 93.72; GLUCOSE FASTING 102.0 mg/dL (65-100); OSMOLALITY SERUM 279.0 MOSM/KG (275-295)
[2025-05-26 22:12] LABS: URINE APPEARANCE Clear; URINE BILIRRUBIN Negative (NEGATIVE); URINE BLOOD Negative; URINE COLOR Dark Yellow; URINE GLUCOSE Negative (NEGATIVE); URINE KETONE Negative (NEGATIVE); URINE LEUKOCYTE Negative; URINE NITRATE Positive; URINE PROTEIN Negative (NEGATIVE); URINE UROBILINOGEN 0.2 E.U./dl
[2025-05-26 22:16] LABS: URINE BACTERIA 141.5 uL (0.0-1933); URINE EPITHELIAL CELLS 8.6 uL (0.0-38.8); URINE RBC 2.3 uL (0.0-20.8); URINE WBC 3.9 uL (0.0-23.2)
[2025-05-26 22:20] LABS: URINE CAST 0.00 uL (0.0-1.40)
[2025-05-27] MEDS ORDERED: PEPCID40 MG PO (00:12)
[2025-05-27] MEDS ORDERED: OMEPRAZOLE40 MG PO (00:12)
== END 2025-05-27 00:56 | disposition home or self-care (01) ==
LOC: ER 16:26
PROVIDERS: General Practice
DX: R10.9 Unspecified abdominal pain (principal); N39.0 Urinary tract infection, site not specified; Z88.0 Allergy status to penicillin; Z91.041 Radiographic dye allergy status; Z91.013 Allergy to seafood